=== PATIENT | male | born 1990 | race Caucasian/White ===

== ENCOUNTER 2016-08-18 21:47 | Emergency (ER) | payer BC ==
[~2016-08-18] VITALS: Ht 188 cm; Wt 145.5 kg
[~2016-08-18 21:47] MED LIST: AMOXICILLIN PO; NO HOME MEDICATIONS; NORCO 325 MG-51 TAB PO; VANCOMYCIN IV
[2016-08-18 21:54] VITALS: BP 145/85; PULSE 75; TEMP 98.1
[2016-08-18] MEDS ORDERED: PEN-VEE K500 MG PO (23:14)
== END 2016-08-18 23:37 | disposition home or self-care (01) ==
LOC: COL.ER 21:47
DX: K02.9 Dental caries, unspecified (principal); F17.210 Nicotine dependence, cigarettes, uncomplicated; Z98.890 Other specified postprocedural states

== ENCOUNTER 2017-04-17 20:33 | Emergency (ER) | payer SELFPAY ==
[~2017-04-17] VITALS: Ht 188 cm; Wt 154.5 kg
[~2017-04-17 20:33] MED LIST changes: +PEN-VEE K500 MG PO
[2017-04-17 20:48] VITALS: BP 147/86; PULSE 74; TEMP 97.8
[2017-04-17] MEDS ORDERED: AMOXICILLIN 50500 MG PO (21:25)
== END 2017-04-17 21:37 | disposition home or self-care (01) ==
LOC: COL.ER 20:33
DX: K02.9 Dental caries, unspecified (principal)

== ENCOUNTER 2018-10-17 09:21 | Emergency (ER) | payer SELFPAY ==
[~2018-10-17] VITALS: Ht 188 cm; Wt 159.1 kg
[~2018-10-17 09:21] MED LIST changes: +AMOXICILLIN 50500 MG PO
[2018-10-17 09:25] VITALS: BP 141/84; TEMP 97.9
[2018-10-17 10:28] LABS: BASO # 0.1 (0.0-0.2); BASO % 0.5 % (0.0-2.0); EOS # 0.2 (0.0-0.7); EOS % 2.1 % (0-4.0); GRAN # 6.3 (1.4-6.5); GRAN % 58.7 % (42.2-75.2); HEMATOCRIT 41.5 % (42.0-52.0); HEMOGLOBIN 13.9 g/dl (13.5-18.0); LYMPH # 3.3 (1.2-3.4); LYMPH % 30.5 % (20.0-51.0); MEAN CELL VOLUME 85 fl (80.0-100.0); MEAN CORPUSCULAR HEMOGLOBIN 29 pg (27.0-31.0); MEAN CORPUSCULAR HGB CONC 34 g/dl (33.0-37.0); MONO # 0.9 (0.1-0.6); PLATELET COUNT 303 K/mm3 (130-400); RED BLOOD COUNT 4.86 M/mm3 (4.20-5.60); REDCELL DISTRIBUTION WIDTH-CV 13.1 % (11.5-14.5)
[2018-10-17 10:30] LABS: INR 1.1 (0.8-3.0); PROTHROMBIN TIME 12.4 SECONDS (9.7-12.8)
[2018-10-17 10:34] LABS: ALBUMIN 4.6 gm/dL (3.5-5.0); BILIRUBIN,TOTAL 0.7 mg/dL (0.0-1.0); CALCIUM 9.7 mg/dL (8.4-10.2); CREATININE, serum 0.7 (0.66-1.25); TOTAL PROTEIN 7.9 gm/dL (6.4-8.2)
[2018-10-17 14:39] VITALS: PULSE 77
== END 2018-10-17 14:39 | disposition short-term general hospital (02) ==
LOC: COL.ER 09:21
PROVIDERS: Physician Assistant
DX: S30.0XXA Contusion of lower back and pelvis, initial encounter (principal); F17.210 Nicotine dependence, cigarettes, uncomplicated; X58.XXXA Exposure to other specified factors, initial encounter; Z86.2 Personal history of diseases of the blood and blood-forming organs and certain disorders involving the immune mechanism; Z88.6 Allergy status to analgesic agent
CPT/HCPCS: J3010; Q9967

== ENCOUNTER 2021-09-12 09:42 | Outpatient (CLI) | payer BC ==
[~2021-09-12] VITALS: Ht 188 cm; Wt 161.2 kg
[2021-09-12 10:38] VITALS: BP 122/77; PULSE 88; TEMP 98.2
== END 2021-09-12 12:20 | disposition home or self-care (01) ==
LOC: EUO 09:42
DX: D66 Hereditary factor VIII deficiency (principal)
CPT/HCPCS: J2597

== ENCOUNTER → 2021-12-12 | Outpatient (CLI) | payer BC ==
[2021-12-12 14:29] LABS: BASO # 0.1 K/mm3 (0.0-0.2); BASO % 0.7 % (0.0-2.0); EOS # 0.3 K/mm3 (0.0-0.7); EOS % 3.6 % (0.0-4.0); GRAN # 3.7 K/mm3 (1.4-6.5); GRAN % 52.6 % (42.2-75.2); HEMATOCRIT 43.5 % (42.0-52.0); HEMOGLOBIN 14.7 g/dl (13.5-18.0); LYMPH # 2.4 K/mm3 (1.2-3.4); MEAN CELL VOLUME 86 fl (80.0-100.0); MEAN CORPUSCULAR HEMOGLOBIN 29 pg (27-31); MEAN CORPUSCULAR HGB CONC 34 g/dl (33.0-37.0); MEAN PLATELET VOLUME 8.7 fl (7.4-10.4); MONO # 0.6 K/mm3 (0.1-0.6); PLATELET COUNT 288 K/mm3 (130-400); RED BLOOD COUNT 5.05 M/mm3 (4.20-5.60); REDCELL DISTRIBUTION WIDTH-CV 13.1 % (11.5-14.5)
[2021-12-17 12:20] LABS: VW COAG FACTOR 13 % (55 - 200); VW FACTOR ACTIVITY 108 % (55 - 200); VW FACTOR ANTIGEN 161 % (55 - 200)
== END ==
LOC: COL.LAB 13:50
DX: D66 Hereditary factor VIII deficiency (principal)